=== PATIENT | female | born 1940 | race Caucasian/White ===

== ENCOUNTER 2020-10-11 13:24 | Outpatient (CLI) | payer MEDICARE, SELFPAY ==
[2020-10-11 13:18] LABS: Abs Immature Grans 0.03 10^3/uL (0.0-0.06); Absolute Basophil Count 0.07 10^3/uL (0.0-0.2); Absolute Eosinophil Count 0.25 10^3/uL (0.0-0.7); Absolute Lymphocyte Count 1.75 10^3/uL (1.2-3.4); Absolute Neutrophil Count 4.28 10^3/uL (1.2-6.7); Eosinophils % 3.4; HCT 38.8 % (36.0-46.0); HGB 12.6 g/dL (11.2-15.7); Immature Grans % 0.4; MCH 33.4 pg (27.0-33.0); MCHC 32.5 % (32.0-36.0); MCV 102.9 fL (80-95); MPV 9.1 fL (8.0-11.0); Monocytes % 12.4; Neutrophils % 58.8; Nucleated RBC 0 %; Platelet Count 478 10^3/uL (130-400); RBC 3.77 10^6/uL (3.93-5.22); RDW 16.6 % (11.7-14.6); RDW-SD 62.2 fL; WBC 7.28 10^3/uL (4.4-10.8)
[2020-10-11 13:36] LABS: ALT 25 U/L (14-59); AST 27 U/L (15-37); Albumin 3.1 g/dL (3.4-5.0); Alkaline Phosphatase 95 U/L (46-116); Anion Gap 4.1 mmol/L (3-11); BUN 16 mg/dL (7-18); Bilirubin, Total 0.4 mg/dL (0.2-1.0); CO2 29.9 mmol/L (21.0-32.0); CREATININE 0.8 mg/dL (0.55-1.02); Calcium 9.3 mg/dL (8.5-10.1); Chloride 107 mmol/L (98-107); Glucose 98 mg/dL (74-106); Potassium 4.1 mmol/L (3.5-5.1); Sodium 141 mmol/L (136-145); Total Protein 7.1 g/dL (6.4-8.2)
[2020-10-13 10:55] LABS: Cancer Ag 15-3 124 U/mL (<30)
== END 2020-10-11 13:25 | disposition home or self-care (01) ==
LOC: LBO 13:28
PROVIDERS: Visit Provider Internal Medicine
DX: C50.919 Malignant neoplasm of unspecified site of unspecified female breast (principal)
CPT/HCPCS: 36415; 80053; 86304; 85025; 86300

== ENCOUNTER 2020-11-08 03:07 | Outpatient (RCR) | payer MEDICARE, SELFPAY ==
[2020-10-18] MEDS: Normal Saline Flush 10 ML SYR IVP (12:10)
[2020-10-18 12:58] LABS: Abs Immature Grans 0.01 10^3/uL (0.0-0.06); Absolute Basophil Count 0.01 10^3/uL (0.0-0.2); Absolute Eosinophil Count 0.04 10^3/uL (0.0-0.7); Absolute Lymphocyte Count 1.79 10^3/uL (1.2-3.4); Absolute Monocyte Count 0.46 10^3/uL (0.1-0.8); Absolute Neutrophil Count 2.27 10^3/uL (1.2-6.7); Basophils % 0.2; Eosinophils % 0.9; HCT 34.1 % (36.0-46.0); HGB 11.4 g/dL (11.2-15.7); Immature Grans % 0.2; Lymphocytes % 39.1; MCH 33.9 pg (27.0-33.0); MCHC 33.4 % (32.0-36.0); MCV 101.5 fL (80-95); MPV 9.7 fL (8.0-11.0); Neutrophils % 49.6; Nucleated RBC 2 %; Platelet Count 304 10^3/uL (130-400); RBC 3.36 10^6/uL (3.93-5.22); RDW 15.3 % (11.7-14.6); RDW-SD 56.8 fL; WBC 4.58 10^3/uL (4.4-10.8)
[2020-10-18 13:16] LABS: ALT 23 U/L (14-59); AST 30 U/L (15-37); Albumin 3.2 g/dL (3.4-5.0); Alkaline Phosphatase 94 U/L (46-116); Anion Gap 10.5 mmol/L (3-11); BUN 11 mg/dL (7-18); Bilirubin, Total 0.5 mg/dL (0.2-1.0); CO2 26.5 mmol/L (21.0-32.0); CREATININE 0.8 mg/dL (0.55-1.02); Calcium 9.2 mg/dL (8.5-10.1); Chloride 104 mmol/L (98-107); Glucose 93 mg/dL (74-106); Potassium 3.7 mmol/L (3.5-5.1); Sodium 141 mmol/L (136-145); Total Protein 7.3 g/dL (6.4-8.2)
[2020-10-20 18:07] LABS: Cancer Ag 15-3 124 U/mL (<30)
[2020-10-25 13:17] LABS: Abs Immature Grans 0.01 10^3/uL (0.0-0.06); Absolute Basophil Count 0.01 10^3/uL (0.0-0.2); Absolute Eosinophil Count 0.01 10^3/uL (0.0-0.7); Absolute Lymphocyte Count 1.23 10^3/uL (1.2-3.4); Absolute Monocyte Count 0.37 10^3/uL (0.1-0.8); Basophils % 0.2; Eosinophils % 0.2; HCT 33.5 % (36.0-46.0); HGB 11.2 g/dL (11.2-15.7); Immature Grans % 0.2; Lymphocytes % 24.5; MCH 34.4 pg (27.0-33.0); MCHC 33.4 % (32.0-36.0); MCV 102.8 fL (80-95); MPV 9.9 fL (8.0-11.0); Monocytes % 7.4; Neutrophils % 67.5; Nucleated RBC 1 %; Platelet Count 182 10^3/uL (130-400); RBC 3.26 10^6/uL (3.93-5.22); WBC 5.03 10^3/uL (4.4-10.8)
[2020-10-25 14:15] LABS: ALT 20 U/L (14-59); AST 20 U/L (15-37); Albumin 3.2 g/dL (3.4-5.0); Alkaline Phosphatase 85 U/L (46-116); Anion Gap 8.4 mmol/L (3-11); BUN 11 mg/dL (7-18); Bilirubin, Total 0.5 mg/dL (0.2-1.0); CO2 28.6 mmol/L (21.0-32.0); Calcium 8.7 mg/dL (8.5-10.1); Chloride 105 mmol/L (98-107); Estimated GFR 53.48 (mL/min/1.73m2); Glucose 100 mg/dL (74-106); Potassium 3.4 mmol/L (3.5-5.1); Sodium 142 mmol/L (136-145); Total Protein 7.4 g/dL (6.4-8.2)
[2020-11-08] MEDS: Normal Saline Flush 10 ML SYR IVP (13:10)
[2020-11-08 13:35] LABS: Abs Immature Grans 0.01 10^3/uL (0.0-0.06); Absolute Basophil Count 0.04 10^3/uL (0.0-0.2); Absolute Eosinophil Count 0.08 10^3/uL (0.0-0.7); Absolute Lymphocyte Count 1.48 10^3/uL (1.2-3.4); Absolute Neutrophil Count 2.61 10^3/uL (1.2-6.7); Basophils % 0.8; Eosinophils % 1.5; HCT 33.7 % (36.0-46.0); HGB 11.2 g/dL (11.2-15.7); Immature Grans % 0.2; Lymphocytes % 28.4; MCH 34.5 pg (27.0-33.0); MCHC 33.2 % (32.0-36.0); MCV 103.7 fL (80-95); MPV 10.4 fL (8.0-11.0); Monocytes % 19.2; Neutrophils % 49.9; Nucleated RBC 0 %; RBC 3.25 10^6/uL (3.93-5.22); RDW 18.7 % (11.7-14.6); RDW-SD 69.8 fL; WBC 5.22 10^3/uL (4.4-10.8)
[2020-11-08 13:59] LABS: Platelet Count 702 10^3/uL (130-400)
[2020-11-08 14:00] LABS: Anisocytosis 2+; Diff Comment Diff Reviewed; Macrocytosis 2+; Polychromasia Present
[2020-11-08 14:01] LABS: Poikilocytes 2+
[2020-11-08 15:05] LABS: ALT 26 U/L (14-59); AST 34 U/L (15-37); Alkaline Phosphatase 78 U/L (46-116); Anion Gap 6.9 mmol/L (3-11); BUN 10 mg/dL (7-18); Bilirubin, Total 0.3 mg/dL (0.2-1.0); CO2 29.1 mmol/L (21.0-32.0); CREATININE 0.9 mg/dL (0.55-1.02); Chloride 106 mmol/L (98-107); Glucose 93 mg/dL (74-106); Potassium 3.9 mmol/L (3.5-5.1); Sodium 142 mmol/L (136-145); Total Protein 7.3 g/dL (6.4-8.2)
== END 2020-11-10 23:59 | disposition home or self-care (01) ==
LOC: INF 03:07
PROVIDERS: Visit Provider Internal Medicine
DX: C50.919 Malignant neoplasm of unspecified site of unspecified female breast (principal)
CPT/HCPCS: 36415; 80053; 86304; 85025; 86300

== ENCOUNTER 2020-11-09 16:23 | Outpatient (CLI) | payer MEDICARE, SELFPAY ==
--- NOTE | 2020-11-09 15:15 | DI.RAD_ITS ---
Exam(s) XR CHEST 2V PA LATERAL EXAM: XR CHEST 2V PA LATERAL CLINICAL HISTORY: METASTATIC BREAST CANCER C50.919 DYSPNEA R06.00 PE J90. TECHNIQUE: 2D digital imaging was performed. COMPARISON: No exams were available for comparison FINDINGS: Heart size is normal. The mediastinum is not widened. There is a large left pleural effusion. Volume loss in the left lower lobe noted. Right lung is mary ar. Surgical clips in left axilla noted. IMPRESSION: Large left pleural effusion. DATA REPOSITORY: RADIATION DOSE DELIVERED:
== END 2020-11-09 16:43 ==
PROVIDERS: Visit Provider Internal Medicine
DX: C50.919 Malignant neoplasm of unspecified site of unspecified female breast (principal); J90 Pleural effusion, not elsewhere classified; R06.00 Dyspnea, unspecified
CPT/HCPCS: 71046

== ENCOUNTER 2020-11-22 01:30 | Outpatient (RCR) | payer MEDICARE, SELFPAY ==
[2020-11-15] MEDS: Normal Saline Flush 10 ML SYR IVP (12:39)
[2020-11-15 12:45] LABS: Abs Immature Grans 0.01 10^3/uL (0.0-0.06); HCT 33.1 % (36.0-46.0); HGB 10.9 g/dL (11.2-15.7); MCH 34.6 pg (27.0-33.0); MCHC 32.9 % (32.0-36.0); MCV 105.1 fL (80-95); MPV 9.3 fL (8.0-11.0); RBC 3.15 10^6/uL (3.93-5.22); RDW 18.2 % (11.7-14.6); RDW-SD 69.7 fL; WBC 2.41 10^3/uL (4.4-10.8)
[2020-11-15 13:04] LABS: ALT 34 U/L (14-59); AST 46 U/L (15-37); Albumin 3.2 g/dL (3.4-5.0); Alkaline Phosphatase 72 U/L (46-116); Anion Gap -1.2 mmol/L (3-11); BUN 10 mg/dL (7-18); Bilirubin, Total 0.4 mg/dL (0.2-1.0); CO2 28.2 mmol/L (21.0-32.0); CREATININE 0.7 mg/dL (0.55-1.02); Calcium 9.2 mg/dL (8.5-10.1); Chloride 107 mmol/L (98-107); Glucose 90 mg/dL (74-106); Potassium 4.2 mmol/L (3.5-5.1); Sodium 134 mmol/L (136-145); Total Protein 6.9 g/dL (6.4-8.2)
[2020-11-15 13:09] LABS: Absolute Basophil Count 0.02 10^3/uL (0.0-0.2); Absolute Lymphocyte Count 1.01 10^3/uL (1.2-3.4); Absolute Monocyte Count 0.53 10^3/uL (0.1-0.8); Absolute Neutrophil Count 0.84 10^3/uL (1.2-6.7); Platelet Count 589 10^3/uL (130-400)
[2020-11-15 13:10] LABS: Basophilic Stippling Present; Diff Comment Manual Differential; Hypochromasia 2+; Macrocytosis 2+; Nucleated RBC 16 %; Polychromasia Present
[2020-11-15 13:11] LABS: Poikilocytes 2+
[2020-11-16 12:11] LABS: Cancer Ag 15-3 147 U/mL (<30)
[2020-11-22 14:05] LABS: Abs Immature Grans 0.04 10^3/uL (0.0-0.06); Absolute Lymphocyte Count 1.34 10^3/uL (1.2-3.4); Absolute Monocyte Count 1.52 10^3/uL (0.1-0.8); Basophils % 0.2; Eosinophils % 0.2; HCT 40.5 % (36.0-46.0); HGB 13.4 g/dL (11.2-15.7); Immature Grans % 0.3; Lymphocytes % 10.7; MCH 34.9 pg (27.0-33.0); MCHC 33.1 % (32.0-36.0); MCV 105.5 fL (80-95); MPV 9.5 fL (8.0-11.0); Monocytes % 12.1; Neutrophils % 76.5; Nucleated RBC 0 %; Platelet Count 384 10^3/uL (130-400); RBC 3.84 10^6/uL (3.93-5.22); RDW 19.8 % (11.7-14.6); RDW-SD 73.5 fL; WBC 12.55 10^3/uL (4.4-10.8)
[2020-11-22 14:07] LABS: Absolute Basophil Count 0.03 10^3/uL (0.0-0.2); Absolute Eosinophil Count 0.03 10^3/uL (0.0-0.7)
[2020-11-22 14:16] LABS: ALT 23 U/L (14-59); AST 28 U/L (15-37); Albumin 3.1 g/dL (3.4-5.0); Alkaline Phosphatase 78 U/L (46-116); Anion Gap 9.5 mmol/L (3-11); BUN 21 mg/dL (7-18); Bilirubin, Total 0.3 mg/dL (0.2-1.0); CO2 25.5 mmol/L (21.0-32.0); CREATININE 1.3 mg/dL (0.55-1.02); Calcium 8.9 mg/dL (8.5-10.1); Chloride 101 mmol/L (98-107); Estimated GFR 39.51 (mL/min/1.73m2); Glucose 140 mg/dL (74-106); Potassium 3.8 mmol/L (3.5-5.1); Sodium 136 mmol/L (136-145); Total Protein 7.4 g/dL (6.4-8.2)
[2020-11-22] MEDS: Normal Saline Flush 10 ML SYR IVP (14:30)
[2020-11-22 14:42] LABS: Diff Comment RBC Morph Reviewed
[2020-11-22 14:43] LABS: Anisocytosis 1+; Howell-Jolly Bodies Present; Macrocytosis 1+; Poikilocytes 1+
[2020-11-23 11:14] LABS: Cancer Ag 15-3 173 U/mL (<30)
== END 2020-12-11 23:59 | disposition home or self-care (01) ==
LOC: INF 01:30
PROVIDERS: Visit Provider Internal Medicine
DX: C50.919 Malignant neoplasm of unspecified site of unspecified female breast (principal)
CPT/HCPCS: 36415; 80053; 86304; 85025; 86300

== ENCOUNTER 2021-08-01 15:48 | Outpatient (CLI) | payer MEDICARE, SELFPAY ==
[2021-08-01 15:34] LABS: Abs Immature Grans 0.02 10^3/uL (0.0-0.06); Absolute Basophil Count 0.08 10^3/uL (0.0-0.2); Absolute Eosinophil Count 0.05 10^3/uL (0.0-0.7); Absolute Lymphocyte Count 2.09 10^3/uL (1.2-3.4); Absolute Monocyte Count 0.98 10^3/uL (0.1-0.8); Absolute Neutrophil Count 4.23 10^3/uL (1.2-6.7); Basophils % 1.1; Eosinophils % 0.7; HCT 41.1 % (36.0-46.0); HGB 13.6 g/dL (11.2-15.7); Immature Grans % 0.3; Lymphocytes % 28.1; MCH 33.7 pg (27.0-33.0); MCHC 33.1 % (32.0-36.0); MCV 102 fL (80-95); MPV 9.6 fL (8.0-11.0); Monocytes % 13.2; Neutrophils % 56.6; Platelet Count 362 10^3/uL (130-400); RBC 4.04 10^6/uL (3.93-5.22); RDW 15.9 % (11.7-14.6); RDW-SD 58.5 fL; WBC 7.45 10^3/uL (4.4-10.8)
[2021-08-01 15:58] LABS: ALT 24 U/L (14-59); AST 34 U/L (15-37); Albumin 3.2 g/dL (3.4-5.0); Alkaline Phosphatase 99 U/L (46-116); Anion Gap 7.2 mmol/L (3-11); BUN 27 mg/dL (7-18); Bilirubin, Total 0.3 mg/dL (0.2-1.0); CO2 28.8 mmol/L (21.0-32.0); CREATININE 0.9 mg/dL (0.55-1.02); Calcium 9.2 mg/dL (8.5-10.1); Chloride 102 mmol/L (98-107); Glucose 99 mg/dL (74-106); Potassium 3.9 mmol/L (3.5-5.1); Sodium 138 mmol/L (136-145); Total Protein 7.4 g/dL (6.4-8.2)
[2021-08-04 11:00] LABS: Cancer Ag 15-3 120 U/mL (<30)
== END 2021-08-01 15:49 | disposition home or self-care (01) ==
LOC: LBO 15:51
PROVIDERS: Visit Provider Nurse Practitioner Adult Health
DX: C50.912 Malignant neoplasm of unspecified site of left female breast (principal); C79.51 Secondary malignant neoplasm of bone; J90 Pleural effusion, not elsewhere classified
CPT/HCPCS: 36415; 80053; 86304; 85025; 86300

== ENCOUNTER 2021-08-15 12:44 | Outpatient (CLI) | payer MEDICARE, SELFPAY ==
[2021-08-15 13:08] LABS: Abs Immature Grans 0.12 10^3/uL (0.0-0.06); Absolute Basophil Count 0.12 10^3/uL (0.0-0.2); Absolute Eosinophil Count 0.31 10^3/uL (0.0-0.7); Absolute Lymphocyte Count 2.28 10^3/uL (1.2-3.4); Absolute Monocyte Count 0.37 10^3/uL (0.1-0.8); Absolute Neutrophil Count 1.91 10^3/uL (1.2-6.7); Basophils % 2.3; Eosinophils % 6.1; HCT 39.7 % (36.0-46.0); HGB 13.3 g/dL (11.2-15.7); Immature Grans % 2.3; Lymphocytes % 44.6; MCHC 33.5 % (32.0-36.0); MCV 102 fL (80-95); MPV 9.3 fL (8.0-11.0); Monocytes % 7.2; Neutrophils % 37.5; Nucleated RBC 0.4 % (0.0-0.3); Platelet Count 280 10^3/uL (130-400); RBC 3.91 10^6/uL (3.93-5.22); RDW 15.8 % (11.7-14.6); RDW-SD 59.5 fL; WBC 5.11 10^3/uL (4.4-10.8)
[2021-08-15 13:26] LABS: ALT 27 U/L (14-59); AST 37 U/L (15-37); Albumin 3.1 g/dL (3.4-5.0); Alkaline Phosphatase 92 U/L (46-116); Anion Gap 5.7 mmol/L (3-11); BUN 25 mg/dL (7-18); Bilirubin, Total 0.4 mg/dL (0.2-1.0); CO2 29.3 mmol/L (21.0-32.0); CREATININE 0.8 mg/dL (0.55-1.02); Calcium 9.5 mg/dL (8.5-10.1); Chloride 104 mmol/L (98-107); Glucose 92 mg/dL (74-106); Potassium 4.1 mmol/L (3.5-5.1); Sodium 139 mmol/L (136-145)
[2021-08-15 14:44] LABS: Magnesium 1.9 mg/dL (1.8-2.4)
[2021-08-16 17:43] LABS: Cancer Ag 15-3 121 U/mL (<30)
== END 2021-08-15 12:45 | disposition home or self-care (01) ==
LOC: LBO 12:44
PROVIDERS: PCP Internal Medicine; Visit Provider Internal Medicine
DX: C50.912 Malignant neoplasm of unspecified site of left female breast (principal); C79.51 Secondary malignant neoplasm of bone
CPT/HCPCS: 36415; 80053; 86304; 83735; 85025; 86300

== ENCOUNTER 2021-08-29 02:13 | Outpatient (CLI) | payer MEDICARE, SELFPAY ==
[2021-08-29 08:58] LABS: Abs Immature Grans 0.07 10^3/uL (0.0-0.06); Absolute Basophil Count 0.09 10^3/uL (0.0-0.2); Absolute Eosinophil Count 0.01 10^3/uL (0.0-0.7); Absolute Lymphocyte Count 2.24 10^3/uL (1.2-3.4); Absolute Neutrophil Count 9.81 10^3/uL (1.2-6.7); Basophils % 0.7; Eosinophils % 0.1; HCT 39.7 % (36.0-46.0); HGB 13.3 g/dL (11.2-15.7); Immature Grans % 0.5; Lymphocytes % 16.7; MCH 34.5 pg (27.0-33.0); MCHC 33.5 % (32.0-36.0); MCV 103 fL (80-95); MPV 10.4 fL (8.0-11.0); Monocytes % 8.7; Neutrophils % 73.3; Platelet Count 284 10^3/uL (130-400); RBC 3.85 10^6/uL (3.93-5.22); RDW 17.2 % (11.7-14.6); RDW-SD 63.2 fL; WBC 13.39 10^3/uL (4.4-10.8)
[2021-08-29 08:59] LABS: Absolute Monocyte Count 1.16 10^3/uL (0.1-0.8)
[2021-08-29 09:14] LABS: ALT 25 U/L (14-59); AST 35 U/L (15-37); Alkaline Phosphatase 129 U/L (46-116); Anion Gap 6.4 mmol/L (3-11); BUN 21 mg/dL (7-18); Bilirubin, Total 0.3 mg/dL (0.2-1.0); CO2 28.6 mmol/L (21.0-32.0); CREATININE 0.8 mg/dL (0.55-1.02); Calcium 8.7 mg/dL (8.5-10.1); Chloride 106 mmol/L (98-107); Glucose 88 mg/dL (74-106); Potassium 3.7 mmol/L (3.5-5.1); Sodium 141 mmol/L (136-145); Total Protein 6.8 g/dL (6.4-8.2)
[2021-08-29 10:33] LABS: Magnesium 2.1 mg/dL (1.8-2.4)
[2021-08-31 14:38] LABS: Cancer Ag 15-3 104 U/mL (<30)
== END 2021-08-29 02:14 | disposition home or self-care (01) ==
LOC: LBO 02:13
PROVIDERS: PCP Internal Medicine; Visit Provider Internal Medicine
DX: C50.919 Malignant neoplasm of unspecified site of unspecified female breast (principal); C79.51 Secondary malignant neoplasm of bone
CPT/HCPCS: 36415; 80053; 86304; 83735; 85025; 86300

== ENCOUNTER 2021-09-05 03:32 | Outpatient (CLI) | payer MEDICARE, SELFPAY ==
[2021-09-05 10:35] LABS: Abs Immature Grans 0.08 10^3/uL (0.0-0.06); Absolute Basophil Count 0.12 10^3/uL (0.0-0.2); Absolute Eosinophil Count 0.06 10^3/uL (0.0-0.7); Absolute Lymphocyte Count 1.71 10^3/uL (1.2-3.4); Absolute Monocyte Count 0.54 10^3/uL (0.1-0.8); Absolute Neutrophil Count 3.13 10^3/uL (1.2-6.7); Basophils % 2.1; Eosinophils % 1.1; HCT 39.8 % (36.0-46.0); HGB 13.1 g/dL (11.2-15.7); Immature Grans % 1.4; Lymphocytes % 30.3; MCH 33.9 pg (27.0-33.0); MCHC 32.9 % (32.0-36.0); MCV 103 fL (80-95); Monocytes % 9.6; Neutrophils % 55.5; Nucleated RBC 0.4 % (0.0-0.3); Platelet Count 382 10^3/uL (130-400); RBC 3.87 10^6/uL (3.93-5.22); WBC 5.64 10^3/uL (4.4-10.8)
[2021-09-05 10:50] LABS: ALT 23 U/L (14-59); AST 36 U/L (15-37); Albumin 3.2 g/dL (3.4-5.0); Alkaline Phosphatase 109 U/L (46-116); Anion Gap 4.2 mmol/L (3-11); BUN 23 mg/dL (7-18); Bilirubin, Total 0.4 mg/dL (0.2-1.0); CO2 31.8 mmol/L (21.0-32.0); CREATININE 0.8 mg/dL (0.55-1.02); Calcium 9.3 mg/dL (8.5-10.1); Chloride 103 mmol/L (98-107); Glucose 83 mg/dL (74-106); Potassium 4.1 mmol/L (3.5-5.1); Sodium 139 mmol/L (136-145); Total Protein 7.2 g/dL (6.4-8.2)
[2021-09-06 16:15] LABS: Cancer Ag 15-3 106 U/mL (<30)
== END 2021-09-05 03:33 | disposition home or self-care (01) ==
LOC: LBO 03:32
PROVIDERS: PCP Internal Medicine; Visit Provider Internal Medicine
DX: C50.912 Malignant neoplasm of unspecified site of left female breast (principal); C79.51 Secondary malignant neoplasm of bone
CPT/HCPCS: 36415; 80053; 86304; 83735; 85025; 86300

== ENCOUNTER 2021-09-06 04:05 | Outpatient (CLI) | payer MEDICARE, SELFPAY | END 2021-09-06 04:06 | disposition home or self-care (01) | LOC: LBO 04:05 | PROVIDERS: PCP Internal Medicine; Visit Provider Internal Medicine ==

== ENCOUNTER 2021-09-19 03:35 | Outpatient (CLI) | payer MEDICARE, SELFPAY ==
[2021-09-19 10:49] LABS: HCT 40.3 % (36.0-46.0); HGB 13.4 g/dL (11.2-15.7); MCH 34.5 pg (27.0-33.0); MCHC 33.3 % (32.0-36.0); MCV 104 fL (80-95); MPV 10.4 fL (8.0-11.0); Platelet Count 321 10^3/uL (130-400); RBC 3.88 10^6/uL (3.93-5.22); RDW 18.2 % (11.7-14.6); RDW-SD 67.5 fL; WBC 17.25 10^3/uL (4.4-10.8)
[2021-09-19 11:10] LABS: ALT 24 U/L (14-59); AST 34 U/L (15-37); Albumin 3.1 g/dL (3.4-5.0); Alkaline Phosphatase 152 U/L (46-116); Anion Gap 6.3 mmol/L (3-11); BUN 18 mg/dL (7-18); Bilirubin, Total 0.3 mg/dL (0.2-1.0); CO2 28.7 mmol/L (21.0-32.0); CREATININE 0.8 mg/dL (0.55-1.02); Calcium 9.2 mg/dL (8.5-10.1); Chloride 105 mmol/L (98-107); Glucose 88 mg/dL (74-106); Potassium 4.1 mmol/L (3.5-5.1); Sodium 140 mmol/L (136-145); Total Protein 7.3 g/dL (6.4-8.2)
[2021-09-19 11:13] LABS: Absolute Neutrophil Count 12.25 10^3/uL (1.2-6.7)
[2021-09-19 11:14] LABS: Absolute Basophil Count 0.17 10^3/uL (0.0-0.2); Absolute Lymphocyte Count 2.93 10^3/uL (1.2-3.4); Atypical Lymphocytes % 3; Diff Comment Manual Differential; RBC Morphology Normal
[2021-09-20 15:58] LABS: Cancer Ag 15-3 102 U/mL (<30)
== END 2021-09-19 03:36 | disposition home or self-care (01) ==
LOC: LBO 03:35
PROVIDERS: PCP Internal Medicine; Visit Provider Internal Medicine
DX: C50.912 Malignant neoplasm of unspecified site of left female breast (principal); C79.51 Secondary malignant neoplasm of bone; C78.7 Secondary malignant neoplasm of liver and intrahepatic bile duct
CPT/HCPCS: 36415; 80053; 86304; 83735; 85025; 86300

== ENCOUNTER 2021-09-26 01:30 | Outpatient (CLI) | payer MEDICARE, SELFPAY ==
[2021-09-26 10:41] LABS: Abs Immature Grans 0.18 10^3/uL (0.0-0.06); Absolute Basophil Count 0.17 10^3/uL (0.0-0.2); Absolute Eosinophil Count 0.05 10^3/uL (0.0-0.7); Absolute Lymphocyte Count 2.14 10^3/uL (1.2-3.4); Absolute Monocyte Count 0.57 10^3/uL (0.1-0.8); Absolute Neutrophil Count 4.06 10^3/uL (1.2-6.7); Basophils % 2.4; Eosinophils % 0.7; HGB 12.8 g/dL (11.2-15.7); Immature Grans % 2.5; Lymphocytes % 29.8; MCH 34.6 pg (27.0-33.0); MCHC 33.7 % (32.0-36.0); MCV 103 fL (80-95); MPV 10.1 fL (8.0-11.0); Monocytes % 7.9; Neutrophils % 56.7; Nucleated RBC 0.7 % (0.0-0.3); Platelet Count 313 10^3/uL (130-400); RDW 17.2 % (11.7-14.6); RDW-SD 64.6 fL; WBC 7.17 10^3/uL (4.4-10.8)
[2021-09-26 10:53] LABS: ALT 24 U/L (14-59); AST 39 U/L (15-37); Alkaline Phosphatase 110 U/L (46-116); Anion Gap 8.3 mmol/L (3-11); BUN 20 mg/dL (7-18); Bilirubin, Total 0.4 mg/dL (0.2-1.0); CO2 29.7 mmol/L (21.0-32.0); CREATININE 0.7 mg/dL (0.55-1.02); Calcium 9.1 mg/dL (8.5-10.1); Chloride 104 mmol/L (98-107); Glucose 87 mg/dL (74-106); Magnesium 1.8 mg/dL (1.8-2.4); Potassium 3.8 mmol/L (3.5-5.1); Sodium 142 mmol/L (136-145); Total Protein 7.1 g/dL (6.4-8.2)
[2021-09-27 13:38] LABS: Cancer Ag 15-3 101 U/mL (<30)
== END 2021-09-26 01:31 | disposition home or self-care (01) ==
LOC: LBO 01:30
PROVIDERS: PCP Internal Medicine; Visit Provider Internal Medicine
DX: C50.912 Malignant neoplasm of unspecified site of left female breast (principal); C79.51 Secondary malignant neoplasm of bone; C78.7 Secondary malignant neoplasm of liver and intrahepatic bile duct; J90 Pleural effusion, not elsewhere classified
CPT/HCPCS: 36415; 80053; 86304; 83735; 85025; 86300

== ENCOUNTER 2021-10-10 08:19 | Outpatient (CLI) | payer MEDICARE, SELFPAY ==
[2021-10-10 10:52] LABS: Abs Immature Grans 0.12 10^3/uL (0.0-0.06); Absolute Basophil Count 0.09 10^3/uL (0.0-0.2); Absolute Lymphocyte Count 2.31 10^3/uL (1.2-3.4); Basophils % 0.6; Eosinophils % 0.1; HCT 38.9 % (36.0-46.0); HGB 13.2 g/dL (11.2-15.7); Immature Grans % 0.8; Lymphocytes % 14.6; MCH 35.4 pg (27.0-33.0); MCHC 33.9 % (32.0-36.0); MCV 104 fL (80-95); MPV 10.2 fL (8.0-11.0); Monocytes % 8.8; Neutrophils % 75.1; Nucleated RBC 0.5 % (0.0-0.3); Platelet Count 302 10^3/uL (130-400); RBC 3.73 10^6/uL (3.93-5.22); RDW 18.3 % (11.7-14.6); RDW-SD 68.5 fL; WBC 15.83 10^3/uL (4.4-10.8)
[2021-10-10 10:54] LABS: Absolute Eosinophil Count 0.02 10^3/uL (0.0-0.7); Absolute Monocyte Count 1.39 10^3/uL (0.1-0.8); Absolute Neutrophil Count 11.89 10^3/uL (1.2-6.7)
[2021-10-10 11:11] LABS: ALT 28 U/L (14-59); AST 33 U/L (15-37); Albumin 3.1 g/dL (3.4-5.0); Alkaline Phosphatase 136 U/L (46-116); Anion Gap 6.9 mmol/L (3-11); BUN 25 mg/dL (7-18); Bilirubin, Total 0.3 mg/dL (0.2-1.0); CO2 30.1 mmol/L (21.0-32.0); CREATININE 0.9 mg/dL (0.55-1.02); Calcium 9.2 mg/dL (8.5-10.1); Chloride 105 mmol/L (98-107); Estimated GFR 64.63 (mL/min/1.73m2); Glucose 96 mg/dL (74-106); Magnesium 1.9 mg/dL (1.8-2.4); Potassium 4.4 mmol/L (3.5-5.1); Sodium 142 mmol/L (136-145); Total Protein 7.2 g/dL (6.4-8.2)
[2021-10-11 14:58] LABS: Cancer Ag 15-3 102 U/mL (<30)
== END 2021-10-10 08:20 | disposition home or self-care (01) ==
LOC: LBO 08:21
PROVIDERS: PCP Internal Medicine; Visit Provider Internal Medicine
DX: C50.912 Malignant neoplasm of unspecified site of left female breast (principal); C79.51 Secondary malignant neoplasm of bone; J90 Pleural effusion, not elsewhere classified
CPT/HCPCS: 36415; 80053; 86304; 83735; 85025; 86300

== ENCOUNTER 2021-10-17 02:27 | Outpatient (CLI) | payer MEDICARE, SELFPAY ==
[2021-10-17 09:33] LABS: Abs Immature Grans 0.13 10^3/uL (0.0-0.06); Absolute Basophil Count 0.16 10^3/uL (0.0-0.2); Absolute Eosinophil Count 0.05 10^3/uL (0.0-0.7); Absolute Lymphocyte Count 1.57 10^3/uL (1.2-3.4); Absolute Monocyte Count 0.49 10^3/uL (0.1-0.8); Absolute Neutrophil Count 3.07 10^3/uL (1.2-6.7); Basophils % 2.9; Eosinophils % 0.9; HCT 37.5 % (36.0-46.0); HGB 12.5 g/dL (11.2-15.7); Immature Grans % 2.4; Lymphocytes % 28.7; MCH 34.9 pg (27.0-33.0); MCHC 33.3 % (32.0-36.0); MCV 105 fL (80-95); MPV 9.9 fL (8.0-11.0); Neutrophils % 56.1; Nucleated RBC 0.7 % (0.0-0.3); Platelet Count 321 10^3/uL (130-400); RBC 3.58 10^6/uL (3.93-5.22); RDW 17.6 % (11.7-14.6); RDW-SD 67.7 fL; WBC 5.47 10^3/uL (4.4-10.8)
[2021-10-17 09:50] LABS: ALT 27 U/L (14-59); AST 38 U/L (15-37); Albumin 2.9 g/dL (3.4-5.0); Alkaline Phosphatase 103 U/L (46-116); BUN 18 mg/dL (7-18); Bilirubin, Total 0.3 mg/dL (0.2-1.0); CREATININE 0.8 mg/dL (0.55-1.02); Calcium 8.8 mg/dL (8.5-10.1); Chloride 106 mmol/L (98-107); Estimated GFR 74.44 (mL/min/1.73m2); Glucose 87 mg/dL (74-106); Magnesium 1.9 mg/dL (1.8-2.4); Potassium 3.6 mmol/L (3.5-5.1); Sodium 141 mmol/L (136-145); Total Protein 6.9 g/dL (6.4-8.2)
== END 2021-10-17 02:28 | disposition home or self-care (01) ==
PROVIDERS: PCP Internal Medicine; Visit Provider Internal Medicine
DX: C50.912 Malignant neoplasm of unspecified site of left female breast (principal); C79.51 Secondary malignant neoplasm of bone; C78.7 Secondary malignant neoplasm of liver and intrahepatic bile duct
CPT/HCPCS: 36415; 80053; 83735; 85025

== ENCOUNTER 2021-10-31 01:27 | Outpatient (CLI) | payer MEDICARE, SELFPAY ==
[2021-10-31 09:30] LABS: Abs Immature Grans 0.06 10^3/uL (0.0-0.06); Absolute Basophil Count 0.08 10^3/uL (0.0-0.2); Absolute Eosinophil Count 0.01 10^3/uL (0.0-0.7); Absolute Lymphocyte Count 2.04 10^3/uL (1.2-3.4); Absolute Neutrophil Count 9.51 10^3/uL (1.2-6.7); Basophils % 0.6; Eosinophils % 0.1; HCT 39.6 % (36.0-46.0); HGB 13.2 g/dL (11.2-15.7); Immature Grans % 0.5; Lymphocytes % 15.8; MCH 35.6 pg (27.0-33.0); MCHC 33.3 % (32.0-36.0); MCV 107 fL (80-95); MPV 10.1 fL (8.0-11.0); Monocytes % 9.3; Neutrophils % 73.7; Nucleated RBC 0.4 % (0.0-0.3); Platelet Count 302 10^3/uL (130-400); RBC 3.71 10^6/uL (3.93-5.22); RDW 18.4 % (11.7-14.6); RDW-SD 72.1 fL
[2021-10-31 09:49] LABS: ALT 26 U/L (14-59); AST 32 U/L (15-37); Albumin 2.9 g/dL (3.4-5.0); Alkaline Phosphatase 132 U/L (46-116); BUN 20 mg/dL (7-18); Bilirubin, Total 0.3 mg/dL (0.2-1.0); CREATININE 0.8 mg/dL (0.55-1.02); Calcium 8.9 mg/dL (8.5-10.1); Chloride 105 mmol/L (98-107); Estimated GFR 74.44 (mL/min/1.73m2); Glucose 71 mg/dL (74-106); Magnesium 1.9 mg/dL (1.8-2.4); Potassium 3.9 mmol/L (3.5-5.1); Sodium 141 mmol/L (136-145)
== END 2021-10-31 01:28 | disposition home or self-care (01) ==
LOC: LBO 01:27
PROVIDERS: PCP Internal Medicine; Visit Provider Internal Medicine
DX: C79.51 Secondary malignant neoplasm of bone (principal); J90 Pleural effusion, not elsewhere classified
CPT/HCPCS: 36415; 80053; 83735; 85025

== ENCOUNTER 2021-11-07 03:02 | Outpatient (CLI) | payer MEDICARE, SELFPAY ==
[2021-11-07 09:51] LABS: Abs Immature Grans 0.12 10^3/uL (0.0-0.06); Absolute Basophil Count 0.11 10^3/uL (0.0-0.2); Absolute Eosinophil Count 0.05 10^3/uL (0.0-0.7); Absolute Lymphocyte Count 1.62 10^3/uL (1.2-3.4); Absolute Monocyte Count 0.58 10^3/uL (0.1-0.8); Basophils % 1.6; Eosinophils % 0.7; HCT 38.2 % (36.0-46.0); HGB 12.9 g/dL (11.2-15.7); Immature Grans % 1.8; Lymphocytes % 24.3; MCH 35.5 pg (27.0-33.0); MCHC 33.8 % (32.0-36.0); MCV 105 fL (80-95); MPV 10.3 fL (8.0-11.0); Monocytes % 8.7; Neutrophils % 62.9; Nucleated RBC 0.6 % (0.0-0.3); Platelet Count 315 10^3/uL (130-400); RBC 3.63 10^6/uL (3.93-5.22); RDW 17.4 % (11.7-14.6); RDW-SD 67.6 fL; WBC 6.68 10^3/uL (4.4-10.8)
[2021-11-07 10:30] LABS: ALT 26 U/L (14-59); AST 32 U/L (15-37); Albumin 3.1 g/dL (3.4-5.0); Alkaline Phosphatase 109 U/L (46-116); Anion Gap 5.6 mmol/L (3-11); BUN 18 mg/dL (7-18); Bilirubin, Total 0.3 mg/dL (0.2-1.0); CO2 31.4 mmol/L (21.0-32.0); CREATININE 0.8 mg/dL (0.55-1.02); Calcium 8.7 mg/dL (8.5-10.1); Chloride 104 mmol/L (98-107); Estimated GFR 74.44 (mL/min/1.73m2); Glucose 81 mg/dL (74-106); Magnesium 1.9 mg/dL (1.8-2.4); Potassium 3.6 mmol/L (3.5-5.1); Sodium 141 mmol/L (136-145)
== END 2021-11-07 03:03 | disposition home or self-care (01) ==
LOC: LBO 03:02
PROVIDERS: PCP Internal Medicine; Visit Provider Internal Medicine
DX: C79.51 Secondary malignant neoplasm of bone (principal); C50.912 Malignant neoplasm of unspecified site of left female breast; C78.7 Secondary malignant neoplasm of liver and intrahepatic bile duct; J90 Pleural effusion, not elsewhere classified
CPT/HCPCS: 36415; 80053; 83735; 85025

== ENCOUNTER 2022-08-15 02:43 | Outpatient (CLI) | payer MEDICARE, SELFPAY ==
[2022-08-15 08:02] LABS: Abs Immature Grans 0.01 10^3/uL (0.0-0.06); Absolute Basophil Count 0.08 10^3/uL (0.0-0.2); Absolute Eosinophil Count 0.31 10^3/uL (0.0-0.7); Absolute Lymphocyte Count 1.89 10^3/uL (1.2-3.4); Absolute Monocyte Count 0.81 10^3/uL (0.1-0.8); Basophils % 1.8; HCT 42.4 % (36.0-46.0); HGB 14.5 g/dL (11.2-15.7); Immature Grans % 0.2; MCH 38.6 pg (27.0-33.0); MCHC 34.2 % (32.0-36.0); MCV 113 fL (80-95); MPV 9.9 fL (8.0-11.0); Monocytes % 18.4; Neutrophils % 29.6; Platelet Count 260 10^3/uL (130-400); RBC 3.76 10^6/uL (3.93-5.22); RDW 16.2 % (11.7-14.6)
[2022-08-15 08:40] LABS: ALT 31 U/L (14-59); AST 45 U/L (15-37); Albumin 2.9 g/dL (3.4-5.0); Alkaline Phosphatase 132 U/L (46-116); Anion Gap 6.7 mmol/L (3-11); BUN 19 mg/dL (7-18); Bilirubin, Total 0.5 mg/dL (0.2-1.0); CO2 31.3 mmol/L (21.0-32.0); CREATININE 0.8 mg/dL (0.55-1.02); Calcium 9.2 mg/dL (8.5-10.1); Chloride 105 mmol/L (98-107); Estimated GFR 73.98 (mL/min/1.73m2); Glucose 84 mg/dL (74-106); Magnesium 1.9 mg/dL (1.8-2.4); Potassium 3.8 mmol/L (3.5-5.1); Sodium 143 mmol/L (136-145); Total Protein 7.4 g/dL (6.4-8.2)
== END 2022-08-15 02:44 | disposition home or self-care (01) ==
LOC: LBO 02:43
PROVIDERS: PCP Internal Medicine; Visit Provider Internal Medicine
DX: C79.51 Secondary malignant neoplasm of bone (principal)
CPT/HCPCS: 36415; 80053; 83735; 85025

== ENCOUNTER 2022-09-04 03:36 | Outpatient (CLI) | payer MEDICARE, SELFPAY ==
[2022-09-04 14:14] LABS: Abs Immature Grans 0.01 10^3/uL (0.0-0.06); Absolute Basophil Count 0.08 10^3/uL (0.0-0.2); Absolute Eosinophil Count 0.25 10^3/uL (0.0-0.7); Absolute Lymphocyte Count 1.91 10^3/uL (1.2-3.4); Absolute Monocyte Count 0.84 10^3/uL (0.1-0.8); Absolute Neutrophil Count 1.45 10^3/uL (1.2-6.7); Basophils % 1.8; Eosinophils % 5.5; HCT 39.3 % (36.0-46.0); HGB 13.2 g/dL (11.2-15.7); Immature Grans % 0.2; Lymphocytes % 42.1; MCHC 33.6 % (32.0-36.0); MCV 113 fL (80-95); MPV 9.5 fL (8.0-11.0); Monocytes % 18.5; Neutrophils % 31.9; Nucleated RBC 0.7 % (0.0-0.3); Platelet Count 244 10^3/uL (130-400); RBC 3.47 10^6/uL (3.93-5.22); RDW 15.8 % (11.7-14.6); RDW-SD 66.8 fL; WBC 4.54 10^3/uL (4.4-10.8)
[2022-09-04 14:35] LABS: ALT 37 U/L (14-59); AST 45 U/L (15-37); Albumin 2.8 g/dL (3.4-5.0); Alkaline Phosphatase 141 U/L (46-116); Anion Gap 5.2 mmol/L (3-11); BUN 19 mg/dL (7-18); Bilirubin, Total 0.4 mg/dL (0.2-1.0); CO2 29.8 mmol/L (21.0-32.0); CREATININE 0.8 mg/dL (0.55-1.02); Calcium 8.8 mg/dL (8.5-10.1); Chloride 108 mmol/L (98-107); Estimated GFR 73.98 (mL/min/1.73m2); Glucose 94 mg/dL (74-106); Magnesium 1.8 mg/dL (1.8-2.4); Potassium 3.8 mmol/L (3.5-5.1); Sodium 143 mmol/L (136-145); Total Protein 6.7 g/dL (6.4-8.2)
[2022-09-04 14:53] LABS: Diff Comment Agrees w/ Instrument
[2022-09-04 14:54] LABS: Macrocytosis 2+
[2022-09-05 19:28] LABS: Cancer Ag 15-3 56 U/mL (<30)
== END 2022-09-04 03:37 | disposition home or self-care (01) ==
LOC: LBO 03:36
PROVIDERS: PCP Internal Medicine; Visit Provider Internal Medicine
DX: C50.912 Malignant neoplasm of unspecified site of left female breast (principal); C78.7 Secondary malignant neoplasm of liver and intrahepatic bile duct; C79.51 Secondary malignant neoplasm of bone
CPT/HCPCS: 36415; 80053; 86304; 83735; 85025; 86300

== ENCOUNTER → 2022-09-24 02:38 | Outpatient (CLI) | payer MEDICARE, SELFPAY ==
--- NOTE | 2022-09-24 13:00 | DI.US_ITS ---
APPROVED REPORT EXAM: Comprehensive 2D, Doppler, and color-flow Echocardiogram Patient Location: Out-Patient Maintenance Tech: Shreyas Perez RDCS Indications: High risk medication use, breast cancer Other Information Study Quality: Adequate Conclusion Normal left ventricular wall thickness and chamber size. Ejection fraction is 60%. There is no segm ental wall motion abnormality Normal right ventricular size and systolic function Both atria are normal in size Aortic valve is mildly sclerotic and trileaflet without stenosis or regurgitation Mitral annular calcification. Trace mitral regurgitation Normal tricuspid valve with moderate regurgitation. Estimated right ventricular systolic pressure is 41 mmHg Borderline dilated ascending aorta Wall motion Left Ventricle The left ventricle is normal size. There is normal left ventricular wall thickness. There is no ventr icular septal defect visualized. LVEF is 60%. Right Ventricle The right ventricle is normal size. Right ventricular systolic function is grossly normal. The RVSP i s 40.9 mmHg. Atria The left atrium size is normal. The right atrium size is normal. Aortic Valve The aortic valve is mildly sclerotic Aortic valve is trileaflet. There is no aortic valvular stenosis . No aortic regurgitation is present. Mitral Valve Moderate mitral annular calcification. No evidence of mitral valve stenosis. Trace mitral regurgitati on. Tricuspid Valve The tricuspid valve is normal in structure. There is no tricuspid valve stenosis. Moderate tricuspid regurgitation. Pulmonic Valve The pulmonary valve is normal in structure. There is no pulmonic valvular stenosis. Moderate pulmonic regurgitation. Great Vessels The aortic root is normal in size. The ascending aorta is borderline dilated. Aortic arch is normal i n caliber. The IVC is dilated, but collapses >50% with inspiration. Pericardium There is no pericardial effusion. 2D Dimensions IVSD d PLAX 0.74 cm F: 0.6-1.0 LVPW d PLAX 0.59 cm F: 0.6 - 1.0 LVID d PLAX 3.80 cm F: 3.8 - 5.2 LVDs 2.60 cm F: 2.2 - 3.5 Ao Root d 3.17 cm F: 2.7 - 3.3 Ao Asc Diam d 3.40 cm F: 2.3 - 3.1 LV EF Teichholz 60.2 % FS 31.45 % M-Mode TAPSE 2.26 cm (M/F) >1.7 LV Diastology MV E' medial 0.077 (>0.07 m/s) E/A Ratio 0.8 LV E/e MED 7.25 (<14) MV E Vmax 0.56 (0.4-1.3 m/s) MV E' lateral 0.074 (>0.1 m/s) MV A Vmax 0.70 (0.4-1.3 m/s) LV E/e LAT 7.51 (<14) MV E/E' medial 7.25 MV E/E' lateral 7.51 MV (E/E' average) 7.37 Aortic Valve LVOT Vmax 0.83 m/s AoV Area Vmax 2.09 cm2 LVOT Peak Grad 2.7 mmHg LVOT Mean Grad 1.6 mmHg LVOT Diam s 1.90 cm AoV Peak Grad 5.1 mmHg LVOT SV 53.20 mL AoV Mean Grad 3.1 mmHg AoV Area VTI 1.93 cm2 Mitral Valve MV DT 225 (160-240 msec) Pulmonary Valve PV Mean Grad 0.6 mmHg RVOT Peak Gr. 0.60 mmHg RVOT Mean Gr. 0.35 mmHg RVOT VTI 0.089 m RVOT Vmax 0.39 m/s Tricuspid Valve TR Peak Grad 32.9 mmHg RA Pressure 8.00 mmHg RVSP (TR) 40.9 mmHg
== END ==
PROVIDERS: PCP Internal Medicine; Visit Provider Internal Medicine
DX: Z79.899 Other long term (current) drug therapy (principal)
CPT/HCPCS: 93306

== ENCOUNTER 2022-09-25 03:11 | Outpatient (CLI) | payer MEDICARE, SELFPAY ==
[2022-09-25 08:45] LABS: Absolute Basophil Count 0.07 10^3/uL (0.0-0.2); Absolute Eosinophil Count 0.26 10^3/uL (0.0-0.7); Absolute Monocyte Count 0.81 10^3/uL (0.1-0.8); Absolute Neutrophil Count 0.98 10^3/uL (1.2-6.7); Basophils % 2.1; Eosinophils % 7.8; HGB 13.4 g/dL (11.2-15.7); Lymphocytes % 36.1; MCH 38.2 pg (27.0-33.0); MCHC 33.5 % (32.0-36.0); MCV 114 fL (80-95); MPV 9.9 fL (8.0-11.0); Monocytes % 24.4; Neutrophils % 29.6; Nucleated RBC 0.9 % (0.0-0.3); Platelet Count 252 10^3/uL (130-400); RBC 3.51 10^6/uL (3.93-5.22); RDW 15.9 % (11.7-14.6); RDW-SD 65.9 fL; WBC 3.32 10^3/uL (4.4-10.8)
[2022-09-25 08:54] LABS: ALT 40 U/L (14-59); AST 50 U/L (15-37); Albumin 2.7 g/dL (3.4-5.0); Alkaline Phosphatase 148 U/L (46-116); Anion Gap 4.7 mmol/L (3-11); BUN 13 mg/dL (7-18); Bilirubin, Total 0.4 mg/dL (0.2-1.0); CO2 31.3 mmol/L (21.0-32.0); CREATININE 0.8 mg/dL (0.55-1.02); Chloride 108 mmol/L (98-107); Estimated GFR 73.98 (mL/min/1.73m2); Glucose 71 mg/dL (74-106); Potassium 3.9 mmol/L (3.5-5.1); Sodium 144 mmol/L (136-145); Total Protein 6.7 g/dL (6.4-8.2)
[2022-09-26 21:03] LABS: Cancer Ag 15-3 61 U/mL (<30)
== END 2022-09-25 03:12 | disposition home or self-care (01) ==
LOC: LBO 03:11
PROVIDERS: PCP Internal Medicine; Visit Provider Internal Medicine
DX: C79.51 Secondary malignant neoplasm of bone (principal); C50.912 Malignant neoplasm of unspecified site of left female breast
CPT/HCPCS: 36415; 80053; 86304; 85025; 86300

== ENCOUNTER 2022-10-02 04:45 | Outpatient (CLI) | payer MEDICARE, SELFPAY ==
[2022-10-02 12:45] LABS: Abs Immature Grans 0.01 10^3/uL (0.0-0.06); Absolute Basophil Count 0.06 10^3/uL (0.0-0.2); Absolute Eosinophil Count 0.35 10^3/uL (0.0-0.7); Absolute Lymphocyte Count 1.82 10^3/uL (1.2-3.4); Absolute Monocyte Count 0.93 10^3/uL (0.1-0.8); Absolute Neutrophil Count 2.14 10^3/uL (1.2-6.7); Basophils % 1.1; Eosinophils % 6.6; HCT 41.5 % (36.0-46.0); Immature Grans % 0.2; Lymphocytes % 34.3; MCH 37.8 pg (27.0-33.0); MCHC 33.7 % (32.0-36.0); MCV 112 fL (80-95); MPV 10.1 fL (8.0-11.0); Monocytes % 17.5; Neutrophils % 40.3; Platelet Count 249 10^3/uL (130-400); RDW 15.4 % (11.7-14.6); RDW-SD 64.7 fL; WBC 5.31 10^3/uL (4.4-10.8)
[2022-10-02 13:03] LABS: ALT 36 U/L (14-59); AST 47 U/L (15-37); Albumin 2.9 g/dL (3.4-5.0); Alkaline Phosphatase 154 U/L (46-116); Anion Gap 5.7 mmol/L (3-11); BUN 18 mg/dL (7-18); Bilirubin, Total 0.5 mg/dL (0.2-1.0); CO2 30.3 mmol/L (21.0-32.0); CREATININE 0.7 mg/dL (0.55-1.02); Calcium 9.8 mg/dL (8.5-10.1); Chloride 104 mmol/L (98-107); Estimated GFR 86.83 (mL/min/1.73m2); Glucose 90 mg/dL (74-106); Potassium 4.2 mmol/L (3.5-5.1); Sodium 140 mmol/L (136-145)
[2022-10-04 12:51] LABS: Cancer Ag 15-3 62 U/mL (<30)
== END 2022-10-02 04:46 | disposition home or self-care (01) ==
LOC: LBO 04:45
PROVIDERS: PCP Internal Medicine; Visit Provider Internal Medicine
DX: C50.912 Malignant neoplasm of unspecified site of left female breast (principal); C79.51 Secondary malignant neoplasm of bone
CPT/HCPCS: 36415; 80053; 86304; 85025; 86300

== ENCOUNTER 2022-10-23 02:39 | Outpatient (CLI) | payer MEDICARE, SELFPAY ==
[2022-10-23 12:04] LABS: Absolute Basophil Count 0.05 10^3/uL (0.0-0.2); Absolute Eosinophil Count 0.27 10^3/uL (0.0-0.7); Absolute Lymphocyte Count 1.42 10^3/uL (1.2-3.4); Absolute Monocyte Count 0.89 10^3/uL (0.1-0.8); Absolute Neutrophil Count 1.26 10^3/uL (1.2-6.7); Basophils % 1.3; Eosinophils % 6.9; HCT 40.2 % (36.0-46.0); HGB 13.9 g/dL (11.2-15.7); Lymphocytes % 36.5; MCH 38.7 pg (27.0-33.0); MCHC 34.6 % (32.0-36.0); MCV 112 fL (80-95); MPV 10.1 fL (8.0-11.0); Monocytes % 22.9; Neutrophils % 32.4; Platelet Count 250 10^3/uL (130-400); RBC 3.59 10^6/uL (3.93-5.22); RDW 15.4 % (11.7-14.6); RDW-SD 63.7 fL; WBC 3.89 10^3/uL (4.4-10.8)
[2022-10-23 12:19] LABS: ALT 36 U/L (14-59); AST 49 U/L (15-37); Albumin 2.7 g/dL (3.4-5.0); Alkaline Phosphatase 155 U/L (46-116); Anion Gap 5.2 mmol/L (3-11); BUN 17 mg/dL (7-18); Bilirubin, Total 0.4 mg/dL (0.2-1.0); CO2 31.8 mmol/L (21.0-32.0); CREATININE 0.9 mg/dL (0.55-1.02); Calcium 9.3 mg/dL (8.5-10.1); Chloride 103 mmol/L (98-107); Estimated GFR 64.23 (mL/min/1.73m2); Glucose 86 mg/dL (74-106); Potassium 3.8 mmol/L (3.5-5.1); Sodium 140 mmol/L (136-145); Total Protein 6.9 g/dL (6.4-8.2)
[2022-10-25 18:01] LABS: Cancer Ag 15-3 70 U/mL (<30)
== END 2022-10-23 02:40 | disposition home or self-care (01) ==
LOC: LBO 02:39
PROVIDERS: PCP Internal Medicine; Visit Provider Internal Medicine
DX: C50.919 Malignant neoplasm of unspecified site of unspecified female breast (principal)
CPT/HCPCS: 36415; 80053; 86304; 85025; 86300

== ENCOUNTER 2022-11-13 01:50 | Outpatient (CLI) | payer MEDICARE, SELFPAY ==
[2022-11-13 12:47] LABS: Absolute Basophil Count 0.07 10^3/uL (0.0-0.2); Absolute Eosinophil Count 0.21 10^3/uL (0.0-0.7); Absolute Lymphocyte Count 1.73 10^3/uL (1.2-3.4); Absolute Monocyte Count 0.88 10^3/uL (0.1-0.8); Absolute Neutrophil Count 1.29 10^3/uL (1.2-6.7); Basophils % 1.7; HCT 38.4 % (36.0-46.0); HGB 13.4 g/dL (11.2-15.7); Lymphocytes % 41.4; MCH 38.6 pg (27.0-33.0); MCHC 34.9 % (32.0-36.0); MCV 111 fL (80-95); MPV 10.1 fL (8.0-11.0); Monocytes % 21.1; Neutrophils % 30.8; Nucleated RBC 0.5 % (0.0-0.3); Platelet Count 259 10^3/uL (130-400); RBC 3.47 10^6/uL (3.93-5.22); RDW 15.5 % (11.7-14.6); RDW-SD 63.5 fL; WBC 4.18 10^3/uL (4.4-10.8)
[2022-11-13 13:22] LABS: ALT 36 U/L (14-59); AST 48 U/L (15-37); Albumin 2.7 g/dL (3.4-5.0); Alkaline Phosphatase 141 U/L (46-116); Anion Gap 5.7 mmol/L (3-11); BUN 16 mg/dL (7-18); Bilirubin, Total 0.4 mg/dL (0.2-1.0); CO2 28.3 mmol/L (21.0-32.0); CREATININE 0.8 mg/dL (0.55-1.02); Calcium 9.5 mg/dL (8.5-10.1); Chloride 106 mmol/L (98-107); Estimated GFR 73.98 (mL/min/1.73m2); Glucose 98 mg/dL (74-106); Potassium 3.7 mmol/L (3.5-5.1); Sodium 140 mmol/L (136-145); Total Protein 6.8 g/dL (6.4-8.2)
[2022-11-14 19:10] LABS: Cancer Ag 15-3 69 U/mL (<30)
== END 2022-11-13 01:51 | disposition home or self-care (01) ==
LOC: LBO 01:50
PROVIDERS: PCP Internal Medicine; Visit Provider Internal Medicine
DX: C50.912 Malignant neoplasm of unspecified site of left female breast (principal)
CPT/HCPCS: 36415; 80053; 86304; 85025; 86300